=== PATIENT | male | born 1990 | race Caucasian/White ===

== ENCOUNTER 2021-01-03 19:18 | Outpatient (REF) | payer OTHER, SELFPAY ==
[2021-01-03 20:03] LABS: Influenza A PCR NEGATIVE (Negative); Influenza B PCR NEGATIVE (Negative); Resp Syncy Virus RNA Qual PCR NEGATIVE (Negative); SARS COV2 PCR INHOUSE NEGATIVE (Negative)
== END 2021-01-03 19:19 | disposition home or self-care (01) ==
LOC: HO.LNP 19:18
PROVIDERS: Visit Provider Family Medicine
DX: Z20.822 Contact with and (suspected) exposure to COVID-19 (principal); B34.9 Viral infection, unspecified
CPT/HCPCS: 0241U

== ENCOUNTER 2021-01-15 16:04 | Outpatient (REF) | payer OTHER, SELFPAY ==
--- NOTE | ~2021-01-15 | US_ITS ---
EXAMINATION: US RETROPERITONEAL LIMITED (RENAL ONLY) CLINICAL INFORMATION: Abnormal radiographic findings on diagnostic imaging of unspecified kidney. COMPARISON: None TECHNIQUE: Real-time imaging of the kidneys. FINDINGS: RIGHT KIDNEY: 10.4 x 5.8 x 6.4 cm (SAG x AP x TRV). The kidney is normal in size, contour, and echogenicity. Renal cortical thickness is normal. There is a 1.1 x 0.8 x 1 cm cyst in the midpole. No renal calculi or hydronephrosis. LEFT KIDNEY: 10.2 x 6.1 x 4.6 cm (SAG x AP x TRV). The kidney is normal in size, contour, and echogenicity. Renal cortical thickness is normal. No calculi or focal parenchymal lesions. No hydronephrosis. US/US renal BI IMPRESSION: Small right renal cyst otherwise unremarkable exam.
== END 2021-01-15 16:05 | disposition home or self-care (01) ==
LOC: HO.US 16:04
PROVIDERS: PCP Family Medicine; Visit Provider Family Medicine
DX: R93.429 Abnormal radiologic findings on diagnostic imaging of unspecified kidney (principal); N28.1 Cyst of kidney, acquired
CPT/HCPCS: 76775

== ENCOUNTER 2021-05-06 11:44 | Outpatient (REF) | payer OTHER, SELFPAY ==
[2021-05-06 14:21] LABS: Alanine Aminotransferase 26 U/L (0-40); Albumin Level 4.9 g/dL (3.5-5.0); Alkaline Phosphatase 64 U/L (39-117); Anion Gap 14 (12-20); Aspartate Amino Transferase 20 U/L (5-37); Bilirubin Total 2.1 mg/dL (0.0-1.0); Blood Urea Nitrogen 14 mg/dL (9-16); Calcium 9.9 mg/dL (8.4-10.2); Carbon Dioxide 26 mmol/L (22-29); Chloride 104 mmol/L (96-108); Cholesterol 217 mg/dL; Estimated Glomerular Filt Rate > 60; Glucose Fasting 102 mg/dL (60-99); HDL Cholesterol 35 mg/dL; LDL Cholesterol Calculated 141 mg/dl; Potassium 3.9 mmol/L (3.3-5.1); Sodium 140 mmol/L (135-145); Total Protein 7.9 g/dL (6.5-8.0); Triglycerides 208 mg/dL
== END 2021-05-06 11:45 | disposition home or self-care (01) ==
LOC: HO.WFDLDS 11:44
PROVIDERS: Visit Provider Family Medicine
DX: Z00.00 Encounter for general adult medical examination without abnormal findings (principal)
CPT/HCPCS: 36415; 80053; 80061; 84443

== ENCOUNTER → 2021-07-23 14:04 | Outpatient (REF) | payer OTHER, SELFPAY ==
--- NOTE | 2021-07-23 14:09 | CA_ITS ---
Transthoracic Echocardiogram Patient (Last, First, Middle): Darius Lares, Gender: Male Date of : 1990 Age: 31 Procedure Date: 07/23/2021 Procedure Type: Transthoracic Echocardiogram Location: OP Height: 180.34 cm Weight: 78.47 kg BSA: 1.98 m2 Heart Rate: bpm BP: 116 / 74 mmHg Rivet Flunky: ZAFAR Referring MD: Lj Aguilar MD Sweeping Compound Blender: Marvin Monsalve MD Symptoms: Z86.79 - Personal history of other diseases of the circul... Study Quality: Good ECG Rhythm: Sinus Conclusions: - Normal study Findings Left Ventricle Normal left ventricular size, thickness, and systolic function. The visually estimated ejection fraction is between 60-65%. Diastolic function is normal for age. Right Ventricle Normal right ventricular cavity size and systolic function. Atria Both atria are normal in size. There is no evidence of interatrial shunt. Aortic Valve Normal aortic valve structure and function. There is no aortic valve stenosis. There is no aortic valve regurgitation. Mitral Valve Normal mitral valve structure and function. There is no mitral valve regurgitation. There is no mitral valve stenosis. Pulmonic Valve The pulmonic valve is likely normal. Tricuspid Valve Normal tricuspid valve structure. There is trace tricuspid valve regurgitation. Normal right atrial pressure. There is no evidence of pulmonary hypertension. Great Vessels All visible segments of the aorta are normal in size. The pulmonary artery was not well visualized. Venous The inferior vena cava is normal in size. Inferior vena cava flow is normal. Pericardium/Pleural There is no evidence of pericardial effusion. Prior Study Comparison No prior study available for comparison. Measurements 2D Linear Measurements IVSd: 0.99 0.6-0.9/0.6-1.0 cm LVIDd: 4.51 3.9-5.3/4.2-5.9 cm LVIDd Index: 2.28 2.4-3.2/2.2-3.1 cm/m2 LVIDs: 3.04 2.0-3.6 cm LVPWd: 1.09 0.7-1.1 cm LA Diam: 3.30 2.7-3.8/3.0-4.0 cm LAIDs Index: 1.67 1.5-2.3 cm/m2 LV Mass: 202.78 67-162/88-224 g LV Mass Index: 102.41 43-95/49-115 g/m2 LVOT Diam: 2.10 3.0+(-)1.3 cm 2D Systolic Function EF 4C: 61.50 >55% EF 2C: 61.40 >55% EF BiP: 60.50 >55% Mitral Valve MV Pk E: 0.95 MV PK A: 0.59 MV Decel Time: 228.00 E/A: 1.60 E'Lateral: 14.50 E'Medial: 9.68 E/E' Med: 9.80 E/E' Lat: 6.50 PHT: 67.00 MVA PHT: 3.28 Decel Howard: 4.16 Aortic Valve AoV Pk Kervin: 1.32 AoV Mn Kervin: 0.95 AoV VTI: 0.29 AoV Pk Grad: 7.00 Aov Mn Grad: 4.00 VINOD Cont.VTI: 2.68 LVOT LVOT Pk Kervin: 1.15 LVOT Mn Kervin: 0.80 LVOT VTI: 0.22 LVOT Pk Grad: 5.00 LVOT Mn Grad: 3.00 LVOT Diam: 2.10 LVOT Area: 3.46 Diastolic Function MV Pk E: 0.95 MV Pk A: 0.59 E/A: 1.60 E'Medial: 9.68 E/E' Med: 9.80 E' Laterial: 14.50 E/E' Lat: 6.50 Right Ventricle TAPSE (mm): 20.40 TVS' Kervin: 12.60 Tricuspid Valve TR Pk Kervin: 2.13 TR Pk Grad: 18.00 RA Press: 3.00 RVSP: 21.00 Great Vessels Aorta Sinus of Valsalva: 2.87 2.0-3.[address] Ridge: 2.29 1.7-3.4 cm Ao Asc: 2.90 2.1-3.4 cm Updated in Other Vendor System with Status of Final Marvin Monsalve MD electronically signed on 07/23/2021 6:36:56 PM with status of Final
== END ==
LOC: HO.CARD 14:04
PROVIDERS: PCP Family Medicine; Visit Provider Family Medicine
DX: Z86.79 Personal history of other diseases of the circulatory system (principal)
CPT/HCPCS: 93306

== ENCOUNTER → 2021-11-01 09:51 | Outpatient (BNVA) | payer OTHER, SELFPAY | PROVIDERS: PCP Family Medicine; Visit Provider Orthopaedic Surgery | DX: M65.331 Trigger finger, right middle finger (principal) | CPT/HCPCS: 99202 ==

== ENCOUNTER 2021-11-11 10:07 | Day surgery (SDC) | payer OTHER, SELFPAY ==
[2021-11-11 10:19] VITALS: BP 125/76; PULSE 90; RESP 16; TEMP 36.4; O2SAT 96; BMI 24.0
--- NOTE | 2021-11-11 12:21 | MHC.SHP ---
Pre-Procedural Eval Section A Date of Service: 11/11/21 The patient is an INPATIENT: No Changes since office visit: No Cold of Flu in the past 2 weeks, No New Medical Problems, No Changes in Medication and No Patient answered all questions The History & Physical has been completed within 30 days and I have reviewed it.: Yes Section B Chief Complaint: Trigger finger, right middle finger Allergies: Allergies Allergy/AdvReac Type Severity Reaction Status Date / Time No Known Allergies Allergy Verified 11/01/21 10:00 Plan I have reviewed the history and physical and performed a pertinent physical examination on my patient. No changes have occurred unless specified.
--- NOTE | 2021-11-11 12:21 | W.PM.OPN ---
Operative Note Operative Note Date of Service: 11/11/21 Narrative: Operative Note Preop diagnosis: 1. right middle finger Trigger finger Postop diagnosis: 1. right middle finger Trigger finger Procedure: 1. right middle finger A1 tesfaye release Surgeon: Bea Rivera MD Anesthesia: local block using 1% lidocaine with epinephrine Findings: No locking or catching after A1 tesfaye release EBL: Less than 5 mL Tourniquet time: None Specimens: None Complications: None Disposition: Brought to recovery room in stable condition Plan: Follow-up for 10-14 days for wound check and suture removal Indications: The patient is 31 years old, with a right middle finger trigger finger that has been unresponsive to nonoperative management. The risks and benefits of operative treatment including but not limited to risk of damage to blood vessels, nerves, tendons, infection, persistent pain, persistent symptoms, recurrence or possible need for additional surgery were discussed with the patient and the patient wishes to proceed with surgery. Procedure: Once consent was obtained a local block was performed in the preop area using a combination of 1% lidocaine with epinephrine. The patient was then brought back to the operating suite and placed on the operative table in supine position. A tourniquet was applied to the proximal aspect of the right upper extremity and the limb was prepped and draped in a standard surgical fashion. Once assured that we had a good block, a 1.5 cm oblique incision was made centered over the A1 tesfaye of the right middle finger . The incision was made through the skin to the subcutaneous tissues using a #15 blade. Careful dissection was made down to the level of the A1 tesfaye using tenotomy scissors, with care being taken to protect the nearby neurovascular structures. A longitudinal incision was made in the A1 tesfaye 1st using a #15 blade, then using tenotomy scissors under direct visualization. The A1 tesfaye was noted to be thickened. Following our A1 tesfaye release, we no longer saw any locking or catching of the digit with flexion and extension. Once satisfied with our A1 tesfaye release the wound was copiously irrigated with normal saline and hemostasis was obtained with a brief period of local pressure. The skin edges were reapproximated with some 5.0 nylon suture material and a sterile dressing was applied. The patient appears to have tolerated the procedure well and with no complications. All digits were well vascularized at the conclusion of the case.
[2021-11-11 12:58] VITALS: BP 115/69; PULSE 76; RESP 16; TEMP 37; O2SAT 97
== END 2021-11-11 13:18 | disposition home or self-care (01) ==
PROVIDERS: PCP Family Medicine; Visit Provider Orthopaedic Surgery
PROC: (CPT 26055; principal; 2021-11-11 12:00)
DX: M65.331 Trigger finger, right middle finger (principal); J45.909 Unspecified asthma, uncomplicated; Z87.891 Personal history of nicotine dependence; Z86.16 Personal history of COVID-19
CPT/HCPCS: 26055; J0171

== ENCOUNTER 2023-10-09 09:47 | Outpatient (AMB) | payer MEDICAID, SELFPAY ==
[2023-10-09 09:54] VITALS: BP 120/68; PULSE 86; O2SAT 98; BMI 24.0
--- NOTE | 2023-10-09 09:54 | A.OFFPC_ITS ---
Vital Signs 10/09/23 09:54 Height 5 ft 11 in Weight 172 lb BMI 24.0 BP 120/68 Blood Pressure Location Rt brachial Position Sitting Pulse 86 Pulse Source Pulse Oximeter Pulse Oximetry (%) 98 Oxygen Delivery Method Room Air Intake Visit Reasons: Referral for Mental Health Intake Note: Patient is here for referral for mental health. He states depression/ anxiety, and it's getting worse as time goes on. Allergies No Known Allergies Allergy (Verified 10/09/23 09:55) Medication List - Last Reconciled 10/09/23 by Lj Aguilar MD terbinafine HCl 1% (Antifungal (terbinafine)) 1 appl topical BID 30 days Tobacco use date assessed: 10/09/23 Dental Screening Dental Screen Date: 10/09/23 Did you have a dental visit in the last 12 months?: No Did you have a dental problem in the last 6 months where you did not have access to dental care?: No Was dental information given to patient?: Patient declined HPI Referral for Mental Health HPI Details 33 y/o male presents to f/u depression/a nxiety. Pt reports worsening anxiety/depression. PHQ-9 18, ARMANI-7 16 today. He reports lack of motivation, stating he forces himself to go to school. He notes some days of hurting himself as he feels himself a burden. He denies any plan. He is unsure if he has a FHx or personal history of bipolar disorder. He reports period of elevated mood/decreased need for sleep. [facility], [facility] Medical History COVID-19 Dislocated shoulder Asthma Surgical History No pertinent past surgical history Family History Mother Depression Anxiety Other Mental health disorder Social History Housing: Apartment Alcohol intake: current Alcohol intake frequency: a few times a week Alcohol type: beer Patient Tobacco Use Status: Former Tobacco user (quit about a year ago.) Tobacco use type: Cigarette Cigarettes Per Day: 2 e-Cigarette/Vaping Use: Currently Using Second Hand Smoke Exposure: No service: No Current occupational status: employed and student 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 1. Little interest or pleasure in doing things: more than half the days 2. Feeling down, depressed, or hopeless: more than half the days 3. Trouble falling or staying asleep, or sleeping too much: more than half the days 4. Feeling tired or having little energy: nearly every day 5. Poor appetite or overeating: nearly every day 6. Feeling bad about yourself - or that you are a failure or have let yourself or your family down: nearly every day 7. Trouble concentrating on things, such as reading the newspaper or watching television: more than half the days 8. Moving or speaking so slowly that other people could have noticed. Or the opposite - being so fidgety or restless that you have been moving around a lot more than usual: not at all 9. Thoughts that you would be better off or of hurting yourself in some way: several days Total score: 18 Depression Screening Interpretation: Positive Depression Screening Done: Yes 48372 - PHQ-9 Billing: Yes Source: Developed by Drs. Hubert Delong, Yuliya Stoddard, Cooper Emerson and colleagues, with an educational herminio from [email or web address]. Thrive Questionnaire Date Thrive assessed: 05/06/21 ARMANI-7 AMB Questionnaire ARMANI-7 Date ARMANI - 7 assessed: 05/06/21 Feeling nervous, anxious, or on edge: 3 = Nearly every day Not being able to stop or control worryin = More than half the days Worrying too much about different things: 2 = More than half the days Trouble relaxin = Nearly every day Being so restless that it is hard to sit still: 0 = Not at all Becoming easily annoyed or irritable: 3 = Nearly every day Feeling afraid as if something awful might happen: 3 = Nearly every day Total ARMANI-7 score (0-4 normal; 5-9 mild; 10-14 moderate; 15-21 severe): 16 Source: Developed by Yuliya MunguiaW. Richi, Cooper Emerson and colleagues, with an educational herminio from [email or web address]. ARMANI-7 Assessment Billing ARMANI-7 Assessment Tool: ARMANI-7 Assessment [id number] Review of Systems Const Denies chills, Denies fatigue, Denies fever(s), Denies headache(s) and Denies weakness ENT Denies dizziness and Denies headache(s) Card Denies dyspnea Resp Denies cough, Denies dyspnea, Denies wheezing and Denies other (shortness of breath) Musc Denies numbness and Denies tingling Neuro Denies dizziness, Denies headache(s), Denies numbness, Denies tingling and Denies weakness Psych Reports anxiety and Reports depression Endo Denies fatigue Aller/Immun Denies wheezing Physical exam (Primary Care) Vital Signs: Last Vital Signs Pulse 86 10/09/23 09:54 BP 120/68 10/09/23 09:54 Pulse Ox 98 10/09/23 09:54 Oxygen Delivery Method Room Air 10/09/23 09:54 BMI result Body Mass Index 24.0 Tobacco/Smoking Status: Tobacco use Status Tobacco use date assessed 10/09/23 10/09/23 10:05 Patient Tobacco Use Status Former Tobacco user (quit 10/09/23 10:05 about a year ago.) Tobacco use type Cigarette 10/09/23 10:05 e-Cigarette/Vaping Use Currently Using 10/09/23 10:05 PHQ-9: PHQ-9 Score PHQ-9: Total score 18 10/09/23 10:05 Depression Screening Interpretation: Positive Thrive Assessment: Date of Thrive Assessment Date Thrive assessed 05/06/21 10/09/23 10:05 Const General: well developed; No acute distress Nutritional Appearance: well nourished Orientation/consciousness: patient oriented x3 HENMT Head: Yes normocephalic and Yes atraumatic Eyes General: appearance normal, both eyes and all related structures Pupils: Equal, round and reactive pupils present EOM: EOMs intact bilaterally Resp Effort & Inspection: normal respiratory effort Neuro General: patient oriented x3 and gait normal Cranial nerves: Yes Equal, round and reactive pupils present Psych Affect: No normal affect Assessment and Plan Assessment & Plan (1) Depression with anxiety: Code(s): F41.8 - Other specified anxiety disorders Plan: Rather?severe?depression?and?anxiety?symptoms. Patient?notes?that?his?mother?also?has?significant?mental?health?issues?and?he? acknowledges?that?he?has?had?periods?of?elevated?mood?and?decreased?need?for?sle ep?which?may?represent?a?bipolar?disorder. Discussed?SSRI?medications?however?given?the?possibility?has?bipolar?disorder ,?will?trial?Abilify. Patient?contracts?for?safety?and?I?encouraged?him?to?come?up?with?other?friends? or?family?members?that?he?could?talk?to?if?he?is?having?any?thoughts?of?harming? himself?or?others. Will?refer?for?therapist?and?or?psychiatrist. Orders: Referrals Psychiatry Outpatient Consultation Service F41.8 - Other specified anxiety disorders Medications: New aripiprazole (Abilify) 2 mg PO BEDTIME 30 days 30 tabs 2RF Coding Level of Care Code Est Pt Level 3 (13648) Diagnoses Depression with anxiety F41.8 Additional Codes ARMANI-7 Assessment Billing - ARMANI-7 Assessment Tool: ARMANI-7 Assessment [id number] ([id number])
== END 2023-10-09 11:35 | disposition home or self-care (01) ==
PROVIDERS: PCP Family Medicine; Visit Provider Family Medicine
DX: F41.8 Other specified anxiety disorders (principal)
CPT/HCPCS: 96127; 99213

== ENCOUNTER 2023-11-06 09:26 | Outpatient (AMB) | payer OTHER, SELFPAY ==
[2023-11-06 09:57] VITALS: BP 120/68; PULSE 104; RESP 15; TEMP 36.6; O2SAT 98; BMI 24.9
--- NOTE | 2023-11-06 09:57 | A.OFFPC_ITS ---
Vital Signs 11/06/23 09:57 Height 5 ft 11 in Weight 178 lb 8 oz BMI 24.9 BP 120/68 Blood Pressure Location Rt brachial Position Sitting Respiration 15 Pulse 104 H Pulse Source Pulse Oximeter Temp 97.8 F Temp Source Temporal Artery Scan Pulse Oximetry (%) 98 Oxygen Delivery Method Room Air Intake Visit Reasons: f/u depression/anxiety Intake Note: Patient needs refill on terbinafine. Exhibits Coordinator Required: No Accompanied by: Self / Same As Patient Allergies No Known Allergies Allergy (Verified 11/06/23 11:07) Medication List - Last Reconciled 11/06/23 by Lj Aguilar MD aripiprazole (Abilify) 2 mg PO BEDTIME 30 days terbinafine HCl 1% (Antifungal (terbinafine)) 1 appl topical BID 30 days Tobacco use date assessed: 10/09/23 Dental Screening Dental Screen Date: 10/09/23 HPI f/u depression/anxiety HPI Details 33 y/o male presents to f/u [facility] s evere anxiety/depression with ? bipolar via telemedicine. Had started him on Abilify. PHQ-9 23, ARMANI-7 16 today. Pt notes he had been taking Abilify but did not feel like it was doing anything. He notes he had his first psychiatry/therapy appt. 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 1. Little interest or pleasure in doing things: nearly every day 2. Feeling down, depressed, or hopeless: nearly every day 3. Trouble falling or staying asleep, or sleeping too much: nearly every day 4. Feeling tired or having little energy: nearly every day 5. Poor appetite or overeating: nearly every day 6. Feeling bad about yourself - or that you are a failure or have let yourself or your family down: nearly every day 7. Trouble concentrating on things, such as reading the newspaper or watching television: several days 8. Moving or speaking so slowly that other people could have noticed. Or the opposite - being so fidgety or restless that you have been moving around a lot more than usual: several days 9. Thoughts that you would be better off or of hurting yourself in some way: nearly every day Total score: 23 Depression Screening Interpretation: Positive Depression Screening Done: Yes 69193 - PHQ-9 Billing: Yes Source: Developed by Drs. Hubert Delong, Yuliya Stoddard, Cooper Emerson and colleagues, with an educational herminio from [employer]. Thrive Questionnaire Date Thrive assessed: 05/06/21 ARMANI-7 AMB Questionnaire ARMANI-7 Date ARMANI - 7 assessed: 11/06/23 Feeling nervous, anxious, or on edge: 3 = Nearly every day Not being able to stop or control worryin = More than half the days Worrying too much about different things: 2 = More than half the days Trouble relaxin = More than half the days Being so restless that it is hard to sit still: 2 = More than half the days Becoming easily annoyed or irritable: 3 = Nearly every day Feeling afraid as if something awful might happen: 2 = More than half the days Total ARMANI-7 score (0-4 normal; 5-9 mild; 10-14 moderate; 15-21 severe): 16 Source: Developed by Drs. Hubert Delong, Cooper Weinberg and colleagues, with an educational herminio from [employer]. ARMANI-7 Assessment Billing ARMANI-7 Assessment Tool: ARMANI-7 Assessment 21873 Review of Systems Const Denies chills, Denies fatigue, Denies fever(s), Denies headache(s) and Denies weakness ENT Denies dizziness and Denies headache(s) Card Denies dyspnea Resp Denies cough, Denies dyspnea, Denies wheezing and Denies other (shortness of breath) Musc Denies numbness and Denies tingling Neuro Denies dizziness, Denies headache(s), Denies numbness, Denies tingling and Denies weakness Psych Reports anxiety and Reports depression Endo Denies fatigue Aller/Immun Denies wheezing Physical exam (Primary Care) Vital Signs: Last Vital Signs Temp 97.8 F 11/06/23 09:57 Pulse 104 H 11/06/23 09:57 Resp 15 11/06/23 09:57 BP 120/68 11/06/23 09:57 Pulse Ox 98 11/06/23 09:57 Oxygen Delivery Method Room Air 11/06/23 09:57 BMI result Body Mass Index 24.9 Tobacco/Smoking Status: Tobacco use Status Tobacco use date assessed 10/09/23 11/06/23 10:01 Patient Tobacco Use Status Former Tobacco user (quit 11/06/23 10:01 about a year ago.) Tobacco use type Cigarette 11/06/23 10:01 e-Cigarette/Vaping Use Currently Using 11/06/23 10:01 PHQ-9: PHQ-9 Score PHQ-9: Total score 23 11/06/23 11:12 Depression Screening Interpretation: Positive Thrive Assessment: Date of Thrive Assessment Date Thrive assessed 05/06/21 11/06/23 10:01 Telehealth Telehealth Telehealth Platform: Telephone Location of provider rendering services: practice address Location of patient: other Patient Identification confirmed using: Name, : Yes Telehealth method: voice only Patient verbally consented to treatment: Yes Patient verbally consented to billing insurance company: Yes Patient informed of any privacy concerns related to visit: Yes Minutes spent on Phone/Video with Pt.: 6 Assessment and Plan Assessment & Plan (1) Depression with anxiety: Code(s): F41.8 - Other specified anxiety disorders Plan: Patient?is?taking?Abilify?2?mg?daily - he?notes?that?he?did?not?notice?muc h?help?at?1st?but?when?he?discontinued?it?he?felt?more?irritable?and?when?he?res umed?it?he?felt?better. He?just?saw?his?new?psych?med?provider?today.??She?has?continue?the?Abilify?and? added?mirtazapine Take?medications?as?prescribed. Follow-up?with?psych?med?provider?as?recommended Orders: Orders Complete Blood Count Auto Diff Today Z00.00 - Encounter for general adult medical examination without abnormal findings Lipid Panel Today Z00.00 - Encounter for general adult medical examination without abnormal findings Microalbumin, Random (w Creat) Today I10 - Essential (primary) hypertension TSH reflex Free T4 Today Z00.00 - Encounter for general adult medical examination without abnormal findings UA and rflx microscopic Today Z00.00 - Encounter for general adult medical exam ination without abnormal findings Comprehensive [place]. Panel Fast Today Z00.00 - Encounter for general adult medical examination without abnormal findings Coding Level of Care Code Tele Est Pt Level 2 (33496) Diagnoses Depression with anxiety F41.8 Additional Codes ARMANI-7 Assessment Billing - ARMANI-7 Assessment Tool: ARMANI-7 Assessment [id number] ([id number])
== END 2023-11-06 16:27 | disposition home or self-care (01) ==
PROVIDERS: PCP Family Medicine; Visit Provider Family Medicine
DX: F41.8 Other specified anxiety disorders (principal)
CPT/HCPCS: 99212

== ENCOUNTER 2023-11-06 14:51 | Outpatient (AMB) | payer OTHER, SELFPAY ==
--- NOTE | 2023-11-06 11:39 | A.OFFPSYCH_ITS ---
Intake Intake Visit Reasons: consultation Allergies No Known Allergies Allergy (Verified 11/06/23 11:07) Medication List - Last Reconciled 11/06/23 by Lida Hollins APRN aripiprazole (Abilify) 2 mg PO BEDTIME 30 days terbinafine HCl 1% (Antifungal (terbinafine)) 1 appl topical BID 30 days HPI- Psychiatric Chief Complaint: consultation HPI Narrative: 33 y/o male presents with moderately severe anxiety/depression and question of Bipolar DO. PCP started him on Abilify. Pt states not sure when depression started- he thinks maybe a year ago. He was laid off from work last October 10. He has started school for [employer] which has improved his mood but he continues to struggle with feeling sad on a regular basis easily annoyed irritable he over reacts at times and then regrets his outbursts. 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 He reports decreased appetite eating only once a day however he has had no weight changes he reports passive suicidal ideation but no plan no intent. Patient's PHQ-9 equals 20 his ARMANI 7 equals 16. Past Psychiatric History: Patient reports a previous depressive episode approximately 7 years ago after break-up no inpatient level of care no PHP or IOP Subjective Subjective Subjective Medication Compliance: Yes Side effects from medications: No Review of Systems Medical Review of Systems: unchanged Mental Status Exam Mental Status Exam Patient Appearance: Well Grooomed and Appropriate Patient Orientation: Person, Place, Time and Situation Level of Consciousness: Awake and Appropriate Patient Behavior: Appropriate and Cooperative Mood Description: Anxious and Sad Affect Description: Anxious and Sad Patient Cognition Impaired: No Ability to Follow Directions: Good Speech Pattern: Clear Memory Description: Intact Hallucinations: None Delusions: Not Present Thought Process: Intact Thought Content: positive for Intact Judgement: Good Assessment and Plan Assessment & Plan (1) Major depressive disorder, recurrent episode, moderate with anxious distress: Status: Acute Code(s): F33.1 - Major depressive disorder, recurrent, moderate Plan continue abilify 2 mg daily with food start remeron 15mg at bedtime return in 4 weeks Medications: New mirtazapine (Remeron) 15 mg PO BEDTIME 30 tabs 1RF Refilled aripiprazole (Abilify) 2 mg PO BEDTIME 30 days 30 tabs 2RF Counseling and coordination of Care Pt. Self Management counseling: Maintenance-social rhythm, Mod caffeine/ETOH intake, Sleep hygiene, Behavior activation and General coping skills Medication management counseling: Effectiveness, Side effects, Dosing range, Duration, Drug interaction and Adherence Diagnosis and Prognosis Counseling: Accuracy of diagnosis, Prognosis over time, Impact of diagnosis on life functions, Impact of family relationship, Problematic behaviors secondary to diagnosis and Adequacy of current interventions Details: I spent 60 minutes reviewing the record, seeing the patient and documenting in the medical record. Counseling provided to the patient/caregiver as outlined below. Addressed patient/caregiver concerns regarding current medication regime including effective adherence. Addressed patient/caregiver concerns regarding diagnosis and prognosis including accuracy of diagnosis, prognosis over time, impact of diagnosis. Addressed patient/caregiver concerns regarding impact of recent stressors. 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 he grew up in [place] who was the youngest of 4 siblings he lived with his mother and 3 brothers he spent most of his childhood endorsed due to asthma he does not remember many other details about his childhood he reports he got good grades in school but he dropped out in 10th grade because he was bored he started working different jobs years later he went back and got his GED Substance History: Patient uses tobacco and vapes he reports drinking a 6 pack on the weekend he stopped using THC 5 years ago he uses no other street drugs or illicit substances. Trauma History: None known Coding Level of Care Code Psych Diag Eval w/Med (41140) Diagnoses Major depressive disorder, recurrent episode, moderate with anxious distress F33.1
== END 2023-11-06 14:53 | disposition home or self-care (01) ==
LOC: HO.HOP 14:51
PROVIDERS: PCP Family Medicine; Visit Provider Clinical Nurse Specialist Psychiatric/Mental Health
DX: F33.1 Major depressive disorder, recurrent, moderate (principal)
CPT/HCPCS: 90792

== ENCOUNTER → 2023-11-06 14:51 | Outpatient (BNVA) | payer OTHER, SELFPAY | PROVIDERS: PCP Family Medicine; Visit Provider Clinical Nurse Specialist Psychiatric/Mental Health | DX: F33.1 Major depressive disorder, recurrent, moderate (principal) | CPT/HCPCS: 90792 ==

== ENCOUNTER 2023-12-18 15:34 | Outpatient (AMB) | payer OTHER, SELFPAY ==
--- NOTE | 2023-12-18 15:26 | A.OFFPSYCH_ITS ---
Intake Intake Visit Reasons: F/U Consultation Dealer Card Room Required: No Allergies No Known Allergies Allergy (Verified 11/06/23 11:07) Medication List - Last Reconciled 12/18/23 by Lida Hollins APRN ibuprofen 800 mg PO Q8H PRN 14 days terbinafine HCl 1% (Antifungal (terbinafine)) 1 appl topical BID 30 days HPI- Psychiatric Chief Complaint: F/U Consultation HPI Narrative: symptoms of depression continue PHQ9= 16. GAD7 =9. pt stopped medication duet o side effects; felt the meds made him too tired and agitated. Pt going to school and working; mood depressed, low interest and no enjoyment in activities, feels down, hopeless and helpless. poor appetite, trouble falling and staying asleep. he is easily annoyed. discussed bipolar disorder - pt denies any symptoms of amnia or hypomania. no SI or hI Past Psychiatric History: Patient reports a previous depressive episode approximately 7 years ago after break-up no inpatient level of care no PHP or IOP Subjective Subjective Subjective Medication Compliance: No Side effects from medications: Yes Review of Systems Medical Review of Systems: unchanged Mental Status Exam Mental Status Exam Patient Appearance: Unkempt Patient Orientation: Person, Place, Time and Situation Level of Consciousness: Awake Patient Behavior: Appropriate and Passive Mood Description: Depressed Affect Description: Depressed Patient Cognition Impaired: No Ability to Follow Directions: Good Speech Pattern: Clear and Monotone Memory Description: Intact Hallucinations: None Delusions: Not Present Thought Process: Intact and Distracted Thought Content: positive for Poverty of Content Judgement: Fair Assessment and Plan Assessment & Plan (1) Major depressive disorder, recurrent episode, moderate with anxious distress: Status: Acute Code(s): F33.1 - Major depressive disorder, recurrent, moderate Plan stop abilify and remeron start wellbutrin XL 150mg QAM Medications: New bupropion HCl XL (Wellbutrin XL) 150 mg PO QAM 30 tabs 1RF Counseling and coordination of Care Medication management counseling: Effectiveness, Side effects, Dosing range, Duration, Drug interaction and Adherence Diagnosis and Prognosis Counseling: Accuracy of diagnosis, Prognosis over time, Impact of diagnosis on life functions, Impact of family relationship and Adequac y of current interventions Details: I spent 30 minutes reviewing the record, seeing the patient and documenting in the medical record. Counseling provided to the patient/caregiver as outlined below. Addressed patient/caregiver concerns regarding current medication regime including effective adherence. Addressed patient/caregiver concerns regarding diagnosis an d prognosis including accuracy of diagnosis, prognosis over time, impact of diagnosis. Addressed patient/caregiver concerns regarding impact of recent stressors. [facility] Medical History (Updated 11/10/23 @ 14:02 by Lida Hollins APRN) COVID-19 Dislocated shoulder Asthma Surgical History No pertinent past surgical history Family History Mother Depression Anxiety Other Mental health disorder Social History Housing: Apartment Alcohol intake: current Alcohol intake frequency: a few times a week Alcohol type: beer Patient Tobacco Use Status: Former Tobacco user (quit about a year ago.) Tobacco use type: Cigarette Cigarettes Per Day: 2 e-Cigarette/Vaping Use: Currently Using Second Hand Smoke Exposure: No service: No Current occupational status: student 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 he grew up in [place] who was the youngest of 4 siblings he lived with his mother and 3 brothers he spent most of his childhood endorsed due to asthma he does not remember many other details about his childhood he reports he got good grades in school but he dropped out in 10th grade because he was bored he started working different jobs years later he went back and got his GED Substance History: Patient uses tobacco and vapes he reports drinking a 6 pack on the weekend he stopped using THC 5 years ago he uses no other street drugs or illicit substances. Trauma History: None known Coding Level of Care Code Est Pt Level 4 (56266) Diagnoses Major depressive disorder, recurrent episode, moderate with anxious distress F33.1
== END 2023-12-18 16:05 | disposition home or self-care (01) ==
LOC: HO.HOP 15:34
PROVIDERS: PCP Family Medicine; Visit Provider Clinical Nurse Specialist Psychiatric/Mental Health
DX: F33.1 Major depressive disorder, recurrent, moderate (principal)
CPT/HCPCS: 99214

== ENCOUNTER → 2023-12-18 15:34 | Outpatient (BNVA) | payer OTHER, SELFPAY | PROVIDERS: PCP Family Medicine; Visit Provider Clinical Nurse Specialist Psychiatric/Mental Health | DX: F33.1 Major depressive disorder, recurrent, moderate (principal) | CPT/HCPCS: 99212 ==

== ENCOUNTER 2024-07-05 12:06 | Outpatient (REF) | payer OTHER, SELFPAY ==
[2024-07-05 12:33] LABS: MANUAL DIFF FLAG NO
[2024-07-05 13:24] LABS: Basophils Percent Auto 0.7 % (0-2); Eosinophils Absolute Auto 0.1 X10*3/uL (0.0-0.4); Eosinophils Percent Auto 1.2 % (0-4); Hematocrit 42.8 % (42.0-52.0); Imm Gran Abs Auto 0.02 X10*3/uL (0.00-0.03); Imm Gran Pct Auto 0.3 % (0.0-0.4); Lymphocytes Absolute Auto 1.9 X10*3/uL (1.2-4.9); Mean Corpuscular HGB Conc 32.7 g/dl (31.0-36.0); Mean Corpuscular Hemoglobin 30.2 pg (27.0-33.0); Mean Corpuscular Volume 92.2 fL (80.0-98.0); Mean Platelet Volume 10.3 fL (9.4-12.4); Monocytes Absolute Auto 0.5 X10*3/uL (0.1-1.2); Monocytes Percent Auto 8.3 % (2-11); Neutrophils Absolute Auto 3.3 x10*3/uL (2.0-8.3); Neutrophils Percent Auto 57.5 % (45-73); Platelet Count 326 X10*3/uL (160-400); Red Blood Count 4.64 X10*6/uL (4.60-5.80); Red Cell Distribution Width 12.1 % (11.0-16.0); White Blood Count 5.8 X10*3/uL (4.8-10.8)
[2024-07-05 13:59] LABS: Appearance Urine Clear; Color Urine Yellow; Glucose Urine UA Negative (Negative); Leukocyte Esterase Urine Negative (Negative); Nitrite Urine Negative (Negative); PH 6.5 (5.0-9.0); Urine Blood Negative (Negative); Urine Ketones Negative (Negative); Urine Protein Negative (Neg-Trace)
[2024-07-05 14:12] LABS: Creatinine Urine 81.22 mg/dL; Microalbumin Urine < 5.0 mg/L
[2024-07-05 14:14] LABS: Alanine Aminotransferase 26 U/L (0-40); Albumin Level 4.6 g/dL (3.5-5.0); Alkaline Phosphatase 57 U/L (39-117); Anion Gap 12 (12-20); Aspartate Amino Transferase 26 U/L (5-37); Bilirubin Total 1.5 mg/dL (0.0-1.0); Blood Urea Nitrogen 9 mg/dL (9-16); Calcium 9.6 mg/dL (8.4-10.2); Carbon Dioxide 25 mmol/L (22-29); Chloride 106 mmol/L (96-108); Cholesterol 197 mg/dL (<200); Estimated Glomerular Filt Rate > 60; Glucose Fasting 96 mg/dL (60-99); HDL Cholesterol 42 mg/dL (>40); LDL Cholesterol Calculated 127 mg/dL (<100); Sodium 139 mmol/L (135-145); TSH reflex Free T4 1.05 uIU/mL (0.32-4.0); Total Protein 7.8 g/dL (6.5-8.0); Triglycerides 142 mg/dL (<150)
== END 2024-07-05 12:07 | disposition home or self-care (01) ==
LOC: HO.LAB 12:06
PROVIDERS: PCP Family Medicine; Visit Provider Family Medicine
DX: Z00.00 Encounter for general adult medical examination without abnormal findings (principal); I10 Essential (primary) hypertension
CPT/HCPCS: 36415; 80053; 80061; 81003; 82043; 82570; 84443; 85025